=== PATIENT | male | born 1980 | race Two or more races ===

== ENCOUNTER 2024-05-16 10:19 | Emergency (ER) | payer MEDICAID, SELFPAY ==
--- NOTE | 2024-05-16 10:33 | PD.EDSEIZ ---
ED Seizures RME/HPI General Chief Complaint: Seizure Stated Complaint: SEIZURE Time Seen by Provider: 05/16/24 10:28 Arrival date/time: 05/16/24 10:19 RME / HPI RME / HPI Narrative: This section includes all my notes and documentations, including HPI, PE, and ED course.? Hiren Benson MD HPI: 43 year old male with history of seizures on Keppra and Gabapentin, TBI, hypertension, hyperlipidemia presents to the ED BIBA from home for evaluation of seizures today. Per medics, family on scene reported patient had multiple seizures and when they arrived was found to be postictal. Medics reported en route to ED patient had a seizure and given 4mg IN Narcan with improvement. While in the ED, patient reports he did no take his seizure medications this morning and the last seizure was 3 weeks ago. Patient denies any recent illness, fevers, chills, cough, chest pain, abdominal pain, n/v/d, or urinary symptoms. No other complaints. ROS: All negative except as documented in HPI. Physical Exam: General:? Alert and oriented.?? Eyes:? Conjunctivae and lids clear.?? ENT:? No nasal congestion.?? Neck:? Supple.?? Lungs:? No respiratory distress.?? Skin:? Warm and dry.?? Neuro:? Alert and oriented X 3.?? I reviewed all diagnostic test results. My interpretation of the EKG is? My interpretation of the chest x-ray is My review of the CT report is? Blood tests and urine tests? At this point, diagnoses include? Treatment here included? Significant improvement Not yet done: I discussed the case with our hospitalist.? About the presentation and exam and diagnostics and treatments here.? And need of further care in the hospital.? Will accept the patient. Not yet done: Based on my best medical judgment, made decision no further evaluation or treatment indicated at this time.? Patient understands and agrees to the discharge instructions customized and printed, see below. Discharge Instructions from Dr. Benson printed for you: 1. After evaluation, you were treated for recurrent seizures. Probably from suddenly not taking gabapentin for a couple of days. 2. Continue Keppra twice daily as prescribed by your private doctors. And gabapentin as prescribed today. 3. See your neurologist on 05/19/2024 for recheck and further care. At minimum, call the office and let them know what happened today and asked for further instructions. Ask to review all test results and official radiology reports, to make sure you receive all necessary follow-ups and monitoring. 4. Seek immediate medical care with another seizure or with any concerns. Hiren Benson MD Related Data Home Medications ?Medication ?Instructions ?Recorded ?Confirmed levetiracetam 1,000 mg tablet 1,500 mg PO BID 12/07/23 02/08/24 (Keppra) atorvastatin 40 mg tablet 40 mg PO QDAY 02/08/24 02/08/24 hydroxyzine HCl 25 mg tablet 25 mg PO TID PRN Anxiety 02/08/24 02/08/24 lisinopril 40 mg tablet 40 mg PO QDAY 02/08/24 02/08/24 magnesium oxide 400 mg (241.3 mg 400 mg PO BID 02/08/24 02/08/24 magnesium) tablet mirtazapine 30 mg tablet 30 mg PO HS 02/08/24 02/08/24 trazodone 100 mg tablet 100 mg PO HS 02/08/24 02/08/24 Previous Rx's ?Medication ?Instructions ?Recorded gabapentin 600 mg tablet 600 mg PO TID #30 tabs 02/09/24 sertraline 25 mg tablet 50 mg (2 x 25 mg) PO QDAY #30 tabs 02/09/24 hydrocodone 5 mg-acetaminophen 325 1 tab PO Q8H PRN pain #10 tabs 02/11/24 mg tablet gabapentin 600 mg tablet 1,200 mg (2 x 600 mg) PO .bedtime 05/16/24 #60 tabs gabapentin 800 mg tablet 800 mg PO BID #60 tabs 05/16/24 Allergies Allergy/AdvReac Type Severity Reaction Status Date / Time lactose Allergy Nausea Verified 02/11/24 09:20 sulfamethoxazole Allergy Verified 02/11/24 09:20 [From Bactrim] trimethoprim [From Bactrim] Allergy Verified 02/11/24 09:20 Review of Systems Review of Systems Systems Reviewed: All systems reviewed, normal except as documented Past Medical History Past Medical History NEUROLOGIC: Positive Seizures and Traumatic Brain Injury CARDIAC: Positive Hypercholesterolemia and Hypertension OTHER HISTORY: Positive Shingles (02/2024) and Falls Social History SMOKING STATUS: Current every day smoker ED Exam Narrative Physical exam: As noted in HPI Course Quality Measures none Orders Category Date Time Status EKG (ED ONLY) *Do not use* NOW Care 05/16/24 10:38 Completed Saline [Insert IV] NOW Care 05/16/24 10:38 Active Straight [In and Out Catheter] X1 Care 05/16/24 10:[address] head/brain wo con Stat Exams 05/16/24 10:38 Completed EKG (ED Only) Stat Exams 05/16/24 10:38 Ordered XR chest 1V portable Stat Exams 05/16/24 10:38 Completed Alcohol, Blood Medical Stat Lab 05/16/24 11:14 Completed CBC Stat Lab 05/16/24 11:14 Completed CMP [Comprehensive Metabolic Panel] Stat Lab 05/16/24 11:14 Completed Drug Screen,Urine Stat Lab 05/16/24 12:27 Completed Levetiracetam (Keppra)* Stat Lab 05/16/24 11:14 Received Magnesium Stat Lab 05/16/24 11:14 Completed TSH [Thyroid Stimulating Hormone] Stat Lab 05/16/24 11:14 Completed Troponin I Stat Lab 05/16/24 11:14 Completed Gabapentin [Neurontin] Med 05/16/24 10:36 Discontinued 600 mg PO X1 ONE LORazepam [Ativan Inj] Med 05/16/24 13:05 Discontinued 2 mg IVP X1 ONE levETIRAcetam [Keppra] Med 05/16/24 10:36 Discontinued 1,500 mg PO X1 ONE Vital Signs Vital signs: Vital Signs Temperature 98.8 F 05/16/24 10:35 Pulse Rate 74 05/16/24 10:35 Respiratory Rate 15 05/16/24 10:35 Blood Pressure 146/92 H 05/16/24 10:35 Pulse Oximetry (%) 95 05/16/24 10:35 Oxygen Delivery Method Room Air 05/16/24 10:35 Pulse ox is 95% on room air which is adequate. Seizure MDM Narrative MDM Narrative:: Liz Crook am scribing for and in the presence of Dr. Benson. Patient data External records reviewed:: [facility] previous records (I reviewed ED visit on 02/15/2024 for seizure ) and EMS form Clinical information provided by:: patient and EMS (Provided prehospital course ) Social determinants that could affect healthcare access:: none Patient has the following chronic illnesses:: seizures on Keppra and Gabapentin, TBI, hypertension, hyperlipidemia How is presenting disease/condition affected by chronic disease/condition?: exacerbated by Evaluation data The following diagnostics were reviewed and interpreted by me:: lab results, radiology exam(s) and EKG tracing(s) (My interpretation of the EKG is: Sinus rhythm (62 bpm) with nonspecific ST-T changes. Hiren Benson MD) Lab and/or radiology exams considered but not ordered:: None Interpretation Summary: Head CT negative for acute hemorrhage Medications / Prescriptions Medications or Prescriptions considered but not ordered:: None Medication administrations:: Medication Administration History Discontinued Medications Gabapentin (Gabapentin 300 Mg Capsule) 600 mg PO X1 ONE Stop: 05/16/24 10:37 Last Admin: 05/16/24 10:42 Dose: 600 mg Documented By: FLACA Levetiracetam (Levetiracetam 250 Mg Tablet) 1,500 mg PO X1 ONE Stop: 05/16/24 10:37 Last Admin: 05/16/24 10:43 Dose: 1,500 mg Documented By: FLACA Lorazepam (Lorazepam 2 Mg/Ml Vial) 2 mg IVP X1 ONE Stop: 05/16/24 13:06 Last Admin: 05/16/24 13:15 Dose: 2 mg Documented By: MP See above Consultations Consultation(s) initiated? (list below): No Diagnosis Seizure Differential Diagnosis: intractable seizure disorder, focal seizure, generalized seizure, epileptic seizure and status epilepticus Most likely diagnosis given after review of the tests above:: Recurrent seizures Admission Indicated Admission indicated?: not indicated Admission Request Was there a request for admission?: No Disposition Plan Disposition Plan: Discharge Discharge Attestation Discharge Attestation: The patient and all family members were given an opportunity to ask questions and understood the discharge instructions. Discharge instructions specifically effects, indications for sooner follow up or return to the emergency department, and the expected course of current diagnosis. Patient condition: Stable Discharge Plan Plan Patient Disposition: HOME (Self Care) Prescriptions/Referrals Prescriptions/Med Rec: New gabapentin 800 mg tablet 800 mg PO BID Qty: 60 0RF gabapentin 600 mg tablet 1,200 mg PO .bedtime Qty: 60 0RF No Action levetiracetam [Keppra] 1,000 mg Tablet 1,500 mg PO BID atorvastatin 40 mg tablet 40 mg PO QDAY Patient Comments: take 1 tablet by mouth once daily magnesium oxide 400 mg (241.3 mg magnesium) tablet 400 mg PO BID Patient Comments: take 1 tablet by mouth twice a day trazodone 100 mg tablet 100 mg PO HS Patient Comments: take 1 tablet by mouth at bedtime mirtazapine 30 mg tablet 30 mg PO HS Hold Instructions: Hold until follow up with Dr. Gonzalez outpatient. Patient Comments: take 1 tablet by mouth at bedtime hydroxyzine HCl 25 mg tablet 25 mg PO TID PRN (Reason: Anxiety) Patient Comments: take 1 tablet by mouth three times a day if needed for anxiety or AGITATION lisinopril 40 mg tablet 40 mg PO QDAY Patient Comments: take 1 tablet by mouth once daily sertraline 25 mg Tablet 50 mg PO QDAY Qty: 30 0RF gabapentin 600 mg tablet 600 mg PO TID Qty: 30 0RF hydrocodone-acetaminophen 5-325 mg tablet 1 tab PO Q8H MDD 3 tabs/day PRN (Reason: pain) Qty: 10 0RF Referrals: No Primary/Family,Physician [Primary Care Provider] - In 1 week Problem List Clinical Impression: Recurrent seizures Patient/Caregiver Discharge Instructions Discharge Activity: activity as tolerated Education Materials: ED Seizure, Recurrent (Adult) Additional Instructions: Discharge Instructions from Dr. Benson printed for you: 1. After evaluation, you were treated for recurrent seizures. Probably from suddenly not taking gabapentin for a couple of days. 2. Continue Keppra twice daily as prescribed by your private doctors. And gabapentin as prescribed today. 3. See your neurologist on 05/19/2024 for recheck and further care. At minimum, call the office and let them know what happened today and asked for further instructions. Ask to review all test results and official radiology reports, to make sure you receive all necessary follow-ups and monitoring. 4. Seek immediate medical care with another seizure or with any concerns. Print Language: Ethiopian Stand Alone Forms: [employer] Award Info., Patient Portal Info Letter
[2024-05-16 10:35] VITALS: BP 146/92; PULSE 74; RESP 15; TEMP 37.1; O2SAT 95
--- NOTE | 2024-05-16 10:38 | XR_ITS ---
Examination: AP chest single view TECHNIQUE: AP portable upright chest single view Exam date and time: May 16, 2024 1128 hours Comparison 02/07/2024 INDICATIONS: Shortness of breath today. FINDINGS: No significant cardiac enlargement Atelectasis versus scarring in the lingular segment Right lung clear Mild osteopenia IMPRESSION: Recommend lateral chest view follow-up to exclude pneumonia lingular segment left upper lobe
--- NOTE | 2024-05-16 10:38 | XR_ITS ---
Examination: CT brain head without contrast. 2-D sagittal coronal reconstructions Date and time of exam:May 16, 2024 1141 hours INDICATIONS: New onset seizures today COMPARISON: 02/07/2024 CTDI: vol (mGy):53.1 DLP: (mGycm):1126 Technique: Multiple CT axial sections of the brain have been obtained, 5 mm slice thickness. Contrast has not been administered. 2-D sagittal, coronal reconstructions have been obtained Low dose protocols were performed. One or more of the following dose reduction techniques were used; automated exposure control, adjustment of the mA and/or KV according to patient size, use of iterative reconstruction technique. Findings: No significant ventricular enlargement. Intra-axial or extra-axial hemorrhage density is not seen. No mass effect or midline shift Basal cisterns are not remarkable. Fourth ventricle is midline. Cranial vault intact. Impression: Negative for acute hemorrhage, mass effect or midline shift Consider elective brain MRI follow-up, pre and postcontrast, seizure protocol
[2024-05-16] MEDS: GABAPENTIN 300 MG CAPSULE 600 MG PO (10:42)
[2024-05-16] MEDS: levETIRAcetam 250 MG TABLET 1500 MG PO (10:43)
[2024-05-16 10:44] VITALS: PULSE 88; RESP 18; O2SAT 96; BMI 32.8
[2024-05-16 11:30] LABS: Basophils % (Auto) 1 % (0-2.5); Eosinophils # (Auto) 0.1 Thou/mm3 (0.0-0.5); Eosinophils % (Auto) 1 % (0-10); Hematocrit 42.7 % (41.0-53.0); Hemoglobin 14.9 g/dL (13.5-16.0); Immature Granulocytes % (Auto) 1 % (0-0); Immature Granulocytes Auto 0.04 Thou/mm3 (0.00-0.00); Lymphocytes # (Auto) 1.7 Thou/mm3 (1.0-4.8); Lymphocytes % (Auto) 27 % (10-50); Mean Corpuscular HGB Conc 34.9 g/dl (31.0-37.0); Mean Corpuscular Hemoglobin 31.9 pg (25.0-35.0); Mean Corpuscular Volume 91 fL (80-100); Monocytes # (Auto) 0.4 Thou/mm3 (0.0-0.8); Monocytes % (Auto) 7 % (0-12); Neutrophils % (Auto) 64 % (37-80); Nucleated Red Blood Cell % 0 /100 WBC (0); Platelet Count 201 Thou/mm3 (140-440); RDW Standard Deviation 39.7 fL (35.1-43.9); Red Blood Count 4.67 Miln/mm3 (4.50-5.90); White Blood Count 6.2 Thou/mm3 (3.8-10.6)
[2024-05-16 12:05] LABS: Alanine Aminotransferase 24 U/L (10-49); Albumin, Serum 4.4 gm/dL (3.5-5.0); Albumin/Globulin Ratio 1.8 (1.2-2.2); Alcohol, Blood Medical < 3.0 mg/dL (0-10.0); Alkaline Phosphatase 93 U/L (46-116); Anion Gap 3 (7-16); Aspartate Amino Transferase 16 U/L (0-34); BUN/Creatinine Ratio 8 Ratio (12-20); Bilirubin,Total 0.4 mg/dL (0.3-1.2); Blood Urea Nitrogen 6 mg/dL (9-23); Calcium 9.3 mg/dL (8.3-10.6); Calcium (Corrected) 9.3 mg/dL (8.5-10.1); Carbon Dioxide 29.6 mMol/L (20.0-31.0); Chloride 104 mMol/L (98-107); Creatinine (Component) 0.8 mg/dL (0.6-1.3); Globulin 2.5 gm/dL (2.3-3.5); Glucose 96 mg/dL (74-106); Magnesium 1.7 mg/dL (1.6-2.6); Osmolality,Calculated 271 (275-295); Sodium 137 mMol/L (136-145); Thyroid Stimulating Hormone 1.11 uIU/mL (0.55-4.78); Total Protein 6.9 gm/dL (5.7-8.2); Troponin I < 0.002 ng/mL (0.0-0.045); eGFR > 60 See Note
[2024-05-16 12:19] VITALS: BP 124/89; PULSE 65; RESP 13; TEMP 36.7; O2SAT 98
[2024-05-16 12:56] LABS: Amphetamine/Methamp Scrn,U Negative (Negative); Barbiturate Screen,Urine Negative (Negative); Benzodiazepines Screen,Urine Positive (Negative); Benzoylecgonine Screen, Ur Negative (Negative); Fentanyl Screen,Urine Negative (Negative); Opiate Screen,Urine Negative (Negative); THC Screen,Urine Positive (Negative)
[2024-05-16] MEDS: LORazepam 2 MG/ML VIAL IVP (13:15)
[2024-05-16 14:00] VITALS: BP 123/77; PULSE 57; RESP 16; TEMP 36.7; O2SAT 99
[2024-05-21 06:24] LABS: Levetiracetam (Keppra)* 24.7 mcg/mL (6.0-46.0)
== END 2024-05-16 14:52 | disposition home or self-care (01) ==
PROVIDERS: Emergency Provider Emergency Medicine
DX: R56.9 Unspecified convulsions (principal); R06.02 Shortness of breath; R94.31 Abnormal electrocardiogram [ECG] [EKG]
CPT/HCPCS: 36415; 70450; 71045; 80053; 80177; 80307; 80320; 83735; 84443; 84484; 85025; 93005; 96374; 99284; J2060; A9270; G0480